=== PATIENT | female | born 1990 | race Caucasian/White ===

== ENCOUNTER 2017-09-25 00:53 | Emergency (ER) | payer SELFPAY ==
[~2017-09-25] VITALS: Ht 172.7 cm; Wt 62.5 kg
[~2017-09-25 00:53] MED LIST: HYDR-3240 PO
[2017-09-25 00:59] VITALS: BP 144/89
[2017-09-25] MEDS ORDERED: ACETAMINOPHEN 325 MG TABLET ONE (02:51)
[2017-09-25 03:00] LABS: HEMOGLOBIN 12.8 g/dL (11.7-16.4); WHITE BLOOD COUNT 4.1 x10^3/uL (3.4-10)
[2017-09-25] MEDS ORDERED: ACETAMINOPHEN 325 MG TABLET PO ONE (03:00)
[2017-09-25 03:08] LABS: ASPARTATE AMINO TRANSFERASE 16 U/L (15-37); BLOOD UREA NITROGEN 11 mg/dL (7-18)
== END 2017-09-25 03:47 | disposition home or self-care (01) ==
LOC: ED 02:59
DX: J20.9 Acute bronchitis, unspecified (principal); R10.33 Periumbilical pain
CPT/HCPCS: 36415; 71020; 80053; 81001; 83690; 84703; 85025; 87086; 99285